=== PATIENT | female | born 1975 ===

== ENCOUNTER 2018-11-19 22:41 | Emergency (ER) | payer BC ==
[2018-11-19 22:54] VITALS: BMI 30.8
[2018-11-19 22:58] VITALS: BP 140/81; PULSE 64; RESP 18; TEMP 98.3; O2SAT 96
[2018-11-19] MEDS ORDERED: Naproxen 550 mg Tab PO STA (23:23)
--- NOTE | 2018-11-19 23:26 | ED PDOC ---
Arrival/HPI - General Chief Complaint: Lower Extremity Problem/Injury Time Seen by Provider: 11/19/18 22:55 Historian: Patient - History of Present Illness Narrative History of Present Illness (Text): 11/19/18 23:24 43-year-old female, states that she tripped and fell and injured her right ankle prior to arrival, she reports of pain and swelling to the right ankle at this time. Otherwise she reports no numbness, no decrease in range of motion, no other injury, she has no other complaints. 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 absent: Back Pain, Neck Pain Skin: absent: Rash, Skin Lesions Neurological: absent: Headache, Dizziness Physical Exam Vital Signs Temp Pulse Resp BP Pulse Ox 11/19/18 22:58 98.3 F 64 18 140/81 96 Temperature: Afebrile Blood Pressure: Normal Pulse: Regular Respiratory Rate: Normal Appearance: Positive for: Well-Appearing, Non-Toxic, Comfortable Pain Distress: Mild Mental Status: Positive for: Alert and Oriented X 3 - Systems Exam Lower Extremity: Present: NORMAL PULSES, Normal ROM, Tenderness (to the R ankle), Swelling (to the R ankle), Neurovascularly Intact, Capillary Refill < 2 s, Other (achilles intact and non-tender, foot non-tender). No: CALF TENDERNESS, Erythema, Temperature Abnormalties Neurological: Present: GCS=15, CN II-XII Intact, Speech Normal, Motor Func Grossly Intact, Normal Sensory Function Skin: Present: Warm, Dry, Normal Color. No: Rashes Psychiatric: Present: Alert, Oriented x 3, Normal Insight, Normal Concentration Medical Decision Making ED Course and Treatment: 11/19/18 23:26 Plan : - XR R ankle - Naprosyn PO 11/20/18 00:31 XR R ankle: no fracture, no dislocation, as read by PA Patient advised that official radiology read of XR is still pending and will call the patient if there is any discrepancy within 24 hours. On reevaluation, patient remains awake alert and oriented 3 in no acute distress. XR results d/w the patient, diagnosis of ankle sprain d/w the patient. Advised to rest, ice and elevate. Jignesh wrap applied. Patient instructed on crutch walking. Advised to follow up with primary care physician in 1-2 days without fail. Advised to take medication as prescribed. Return to the emergency room at any time for any new or worsening symptoms. Patient states she fully agrees with and understands discharge instructions. States that she agrees with the plan and disposition. Verbalized and repeated discharge instructions and plan. I have given the patient opportunity to ask any additional questions. 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 Disposition/Present on Arrival - Present on Arrival Any Indicators Present on Arrival: No History of DVT/PE: No History of Uncontrolled Diabetes: No Urinary Catheter: No History of Decub. Ulcer: No History Surgical Site Infection Following: None - Disposition Have Diagnosis and Disposition been Completed?: Yes Diagnosis: Right ankle sprain Disposition: HOME/ ROUTINE Disposition Time: 00:30 Patient Plan: Discharge Condition: STABLE Discharge Instructions (ExitCare): Ankle Sprain (DC) Additional Instructions: Thank you for letting us take care of you today. You were treated for right ankle sprain. The emergency medical care you received today was directed at your acute symptoms. If you were prescribed any medication, please fill it and take as directed. It may take several days for your symptoms to resolve. Return to the Emergency Department if your symptoms worsen, do not improve, or if you have any other problems. Please contact your doctor in 2 days for re-evaluation and follow up. Bring any paperwork you were given at discharge with you along with any medications you are taking to your follow up visit. Our treatment cannot replace ongoing medical care by a primary care provider (PCP) outside of the emergency department. Thank you for allowing the [facility] team to be part of your care today. If you had an X-Ray : A Radiologist will review the ED reading if any change in treatment is needed we will contact you. Prescriptions: Naproxen 500 mg PO BID PRN #20 tablet PRN Reason: Pain, Moderate (4-7) Forms: [facility] (Japanese), WORK NOTE
--- NOTE | 2018-11-20 12:07 | RAD ---
Date of service: 11/19/2018 PROCEDURE: Right Ankle Radiographs. HISTORY: pain COMPARISON: None available. TECHNIQUE: 3 views obtained. FINDINGS: BONES: There is a tiny elliptical shaped bony like density within the medial aspect of the ankle mortise that is of uncertain etiology and could represent some old posttraumatic mineralization. However, the possibility of a tiny avulsion injury-fracture cannot be excluded . Remaining osseous structures appear intact. JOINTS: Ankle mortise maintained. No significant degenerative osteoarthritis. SOFT TISSUES: Moderate to significant lateral soft tissue swelling. OTHER FINDINGS: None. IMPRESSION: There is a tiny bony density which overlies the medial aspect of the ankle mortise which could represent some all posttraumatic mineralization though tiny avulsion injury- fracture not excluded. Repeat plain film radiographs in days is suggested. Moderate to significant lateral soft tissue swelling. This report was placed in PA review folder for follow up
== END 2018-11-20 00:55 | disposition home or self-care (01) ==
LOC: ED 22:41
DX: S93.401A Sprain of unspecified ligament of right ankle, initial encounter (principal); W01.0XXA Fall on same level from slipping, tripping and stumbling without subsequent striking against object, initial encounter

== ENCOUNTER 2018-11-20 19:47 | Emergency (ER) | payer BC ==
[2018-11-20 19:47] VITALS: BMI 30.8
--- NOTE | 2018-11-20 19:55 | ED PDOC ---
Arrival/HPI - General Time Seen by Provider: 11/20/18 19:47 Historian: Patient - History of Present Illness Narrative History of Present Illness (Text): 11/20/18 19:57 43 y/o female presents to the ED for right ankle splint. She injured her ankle yesterday at approx 6pm and was seen here, diagnosed with right ankle sprain. Pt was given an BEENA bandage and sent home on crutches. Pt was called back to ED this evening after her ankle xray was read by the radiologist as a possible avulsion fracture. Denies numbness, weakness, paresthesias, open wounds, pain elsewhere. 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 absent: Fevers Respiratory: Normal. absent: SOB, Cough Cardiovascular: Normal. absent: Chest Pain, Palpitations Gastrointestinal: Normal. absent: Nausea, Vomiting Musculoskeletal: Other (right ankle pain) Skin: Normal. absent: Rash, Cellulitis Neurological: Normal. absent: Headache, Dizziness Physical Exam Vital Signs Reviewed: Yes Temperature: Afebrile Blood Pressure: Normal Pulse: Regular Respiratory Rate: Normal Appearance: Positive for: Well-Appearing, Non-Toxic, Comfortable Pain Distress: None Mental Status: Positive for: Alert and Oriented X 3 - Systems Exam Head: Present: Atraumatic, Normocephalic Pupils: Present: PERRL Extroacular Muscles: Present: EOMI Conjunctiva: Present: Normal Mouth: Present: Moist Mucous Membranes Neck: Present: Normal Range of Motion Upper Extremity: Present: Normal ROM Lower Extremity: Present: NORMAL PULSES, Tenderness (right ankle over lateral malleolus), Swelling (lateral right ankle), Neurovascularly Intact, Capillary Refill < 2 s. No: Normal ROM (decreased at right ankle), Deformity, Temperature Abnormalties Neurological: Present: GCS=15, Speech Normal, Motor Func Grossly Intact, Normal Sensory Function Skin: Present: Warm, Dry, Normal Color. No: Rashes Psychiatric: Present: Alert, Oriented x 3 Medical Decision Making ED Course and Treatment: Right posterior short leg splint applied by me. Neurovascular exam remains unchanged. Pt able to demonstrate safe and appropriate crutch use prior to disch arge. Advised podiatry followup. Referral given. Diagnostic testing results and plan of care discussed with patient. Strict instructions given regarding importance of followup, and signs/symptoms to return to ER including numbness, weakness, paresthesias, or any other new/worsening symptoms. Pt verbalized understanding of discussion. Patient is A&Ox3, ambulating with steady gait, with vital signs stable for discharge. Disposition/Present on Arrival - Present on Arrival Any Indicators Present on Arrival: No History of DVT/PE: No History of Uncontrolled Diabetes: No Urinary Catheter: No History Surgical Site Infection Following: None - Disposition Have Diagnosis and Disposition been Completed?: Yes Diagnosis: Right ankle injury Disposition: HOSPITALIZED Disposition Time: 20:21 Patient Plan: Discharge Condition: IMPROVED Discharge Instructions (ExitCare): Ankle Fracture Additional Instructions: Keep splint on and dry until podiatry followup Do not bear weight on the ankle, use crutches for ambulation Ibuprofen/tylenol as needed Followup with podiatry within 2 days Return to ER with any new/worsening symptoms Call help desk on Thursday for insurance and visit inquires: [phone] Referrals: Podiatry Clinic [Outside] - Follow up with primary Forms: [facility] (Palauan), WORK NOTE
[2018-11-20 20:07] VITALS: BP 133/85; PULSE 74; RESP 18; TEMP 97.6; O2SAT 97
== END 2018-11-20 20:38 | disposition home or self-care (01) ==
LOC: ED 19:47
DX: S93.401D Sprain of unspecified ligament of right ankle, subsequent encounter (principal); W01.0XXD Fall on same level from slipping, tripping and stumbling without subsequent striking against object, subsequent encounter